=== PATIENT | male | born 1950 | race Caucasian/White ===

== ENCOUNTER 2021-04-22 17:18 | Emergency (ER) | payer MEDICARE, SELFPAY ==
[2021-04-22 17:26] VITALS: BP 187/78; PULSE 77; RESP 14; TEMP 37.2; O2SAT 100
--- NOTE | 2021-04-22 17:33 | ED.ALLEREA ---
HPI - Allergic Reaction General Chief complaint: Allergic Reaction Stated complaint: Allergic Reaction Time Seen by Provider: 04/22/21 17:38 Source: patient and RN notes reviewed Mode of arrival: ambulatory Limitations: no limitations History of Present Illness HPI narrative: 70-year-old male presents with concern for generalized itching and possible allergic reaction. He reports symptoms started yesterday. He denies any recent med changes, new laundry detergents, soaps, per care products. Denies any history of allergies to food or medicine. Reports approximately 2 weeks ago he started a new medication, carbidopa levodopa. He denies any interaction at that time. He denies swollen lips, swollen tongue, shortness of breath, nausea, vomiting, diarrhea, fever. Denies any intervention. MD complaint: other (Generalized itching) Related Data Home Medications Medication Instructions Recorded Confirmed albuterol 90 mcg INHALATION Q4H PRN 04/22/21 04/22/21 atorvastatin 20 mg PO DAILY 04/22/21 04/22/21 carbidopa-levodopa 1 tablet PO BID 04/22/21 04/22/21 donepezil 10 mg PO HS 04/22/21 04/22/21 famotidine 20 mg PO DAILY 04/22/21 04/22/21 lamotrigine 200 mg PO DAILY 04/22/21 04/22/21 melatonin 5 mg PO HS 04/22/21 04/22/21 tamsulosin 0.4 mg PO DAILY 04/22/21 04/22/21 Allergies Allergy/AdvReac Type Severity Reaction Status Date / Time codeine Allergy Confusion Verified 04/22/21 17:37 Review of Systems Review of Systems: CONSTITUTIONAL: Denies malaise, chills, sweats, or fever. EYES: Denies visual changes, redness, or discharge. ENT: Denies rhinorrhea, congestion, sinus pain, otalgia or sore throat. CARDIOVASCULAR: Denies chest pain, palpitations, or edema. RESPIRATORY: Denies cough or dyspnea. GASTROINTESTINAL: Denies abdominal pain, nausea, vomiting, diarrhea SKIN: Denies rash. Reports generalized itching MUSCULOSKELETAL: Denies myalgia. NEUROLOGIC: Denies headache. All systems reviewed & are unremarkable except as noted in HPI and below PMFSH Comments At time of signature, agree with nursing past medical, surgical, social and family history. There is no relevant family history pertinent to the presenting complaint Exam Narrative: GENERAL: Well-appearing, well-nourished, and in no acute distress. HEAD: Normocephalic, atraumatic. EYES: PERRLA, conjunctivae clear, and EOMI. ENT: Mucous membranes moist. Oropharynx without edema, erythema or lesions. NECK: Supple. No lymphadenopathy CHEST: Clear to auscultation. No respiratory distress. HEART: Regular rate and rhythm. SKIN: Warm, dry. No rash noted NEURO: Alert and oriented x3. PSYCH: Normal mood and affect Course Course Emergency Course: Patient given IM Benadryl advised to follow-up with primary care provider regarding symptoms and further evaluation Patient is aware of diagnosis, understands and agrees to treatment plan. Anticipatory guidance given. Patient agrees to follow-up as directed and is aware of reasons to seek care at the emergency department. Portions of this record may have been created with voice recognition software Level of Care: Express Care Visit Vital Signs Vital signs: Vital Signs Temperature 99.0 F 04/22/21 17:26 Pulse Rate 77 04/22/21 17:26 Respiratory Rate 14 04/22/21 17:26 Blood Pressure 187/78 H 04/22/21 17:26 Pulse Oximetry 100 04/22/21 17:26 Temperature 99.0 F 04/22/21 17:26 Pulse Rate 77 04/22/21 17:26 Respiratory Rate 14 04/22/21 17:26 Blood Pressure 187/78 H 04/22/21 17:26 Pulse Oximetry 100 04/22/21 17:26 Reviewed. MDM - Allergic Reaction MDM Narrative Medical decision making narrative: No soft palate or uvula edema, no tongue or lip edema or other mucosal involvement, no respiratory compromise, no stridor, no wheezing, no wheezing, no history of syncope, no hypotension, no nausea, vomiting, or diarrhea. Critical Care Time Critical Care Time Critical Care Time: No Discharge Plan Dis
[2021-04-22 17:40] VITALS: BP 187/78; PULSE 77; RESP 14; TEMP 37.2; O2SAT 100
[2021-04-22] MEDS: diphenhydrAMINE HCl INJ 50 MG/ML VIAL 25 MG IM (17:51)
== END 2021-04-22 18:11 | disposition home or self-care (01) ==
PROVIDERS: Emergency Provider Nurse Practitioner; PCP Internal Medicine Geriatric Medicine
DX: L29.9 Pruritus, unspecified (principal); G20 Parkinson's disease; E78.00 Pure hypercholesterolemia, unspecified; K21.9 Gastro-esophageal reflux disease without esophagitis; N40.0 Benign prostatic hyperplasia without lower urinary tract symptoms; Z96.643 Presence of artificial hip joint, bilateral; E11.9 Type 2 diabetes mellitus without complications
CPT/HCPCS: 96372; 99213; G0463; J1200

== ENCOUNTER 2021-10-02 10:07 | Day surgery (SDC) | payer MEDICARE, SELFPAY ==
[2021-09-16 14:42] VITALS: BMI 31.1
--- NOTE | 2021-10-02 07:19 | WPDANESEPPF ---
Anes - Initial Pre Proc Eval Procedure: Operation Date: 10/02/21 11:30 Proposed Procedures p Cataract Extraction with Lens Implant-Left Eye - Eliezer Gonzales MD Date/Time: 10/02/21 07:19 Surgeon: Eliezer Gonzales MD Pre Op Diagnosis: H25.12 Patient Data Age: 71 Gender: M Height: 1.83 m Weight: 104 kg Allergies Allergy/AdvReac Type Severity Reaction Status Date / Time codeine Allergy Confusion Verified 10/02/21 11:08 Home Medications Medication Instructions Recorded Confirmed Type albuterol 90 mcg/actuation aerosol 90 mcg inhalation Q4H PRN Dyspnea 04/22/21 10/02/21 History inhaler atorvastatin 20 mg tablet 20 mg PO DAILY 04/22/21 10/02/21 History donepezil 10 mg tablet 10 mg PO HS 04/22/21 10/02/21 History famotidine 20 mg tablet 20 mg PO DAILY 04/22/21 10/02/21 History lamotrigine 200 mg tablet 300 mg PO DAILY 04/22/21 10/02/21 History melatonin 5 mg tablet 5 mg PO HS 04/22/21 10/02/21 History tamsulosin 0.4 mg capsule 0.4 mg PO DAILY 04/22/21 10/02/21 History dulaglutide 0.75 mg/0.5 mL 0.75 mg subcut WEEKLY 09/16/21 10/02/21 History subcutaneous pen injector (Trulicity) hydroxyzine pamoate 25 mg capsule 25 mg PO BID 09/16/21 10/02/21 History insulin degludec 200 unit/mL (3 40 unit subcut DAILY 09/16/21 10/02/21 History mL) subcutaneous pen (Tresiba FlexTouch U-200 insulin) primidone 50 mg tablet 50 mg PO HS 09/16/21 10/02/21 History Patient hx anesthesia problems: none Family hx anesthesia problems: none Results Review: All pre-operative results and documents have been reviewed as part of the pre-operative evaluation. [facility] Past Medical History Medical History (Updated 10/02/21 @ 11:33 by Chad Ramos DO) Anxiety Depression GERD (gastroesophageal reflux disease) History of pulmonary embolism Hyperlipidemia Hypertension Tremor Social History Social History Smoking status: Never smoker Alcohol intake: former Substance use: never Substance use type: does not use Living arrangements: with family Spiritual care concerns: No Anes - Eval Final PreProcedure Day of Procedure 10/02/21 07:19 Patient weight: obese Heart: regular rate and rhythm Lungs: clear to auscultation and normal air movement Airway: Mallampati scale class II Neurological: alert and oriented Last oral intake: >/= 8 hours ASA classification: III Emergent: no Anesthetic plan: proceed Anesthesia type and monitoring: monitored anesthesia care and standard monitoring Results Review: All pre-operative results and documents have been reviewed as part of the pre-operative evaluation. Informed Consent: The patient's anesthetic plan and its attendant risks and benefits were discussed with the patient/family/POA. Questions were solicited and answers provided to the satisfaction of the patient/family/POA.
--- NOTE | 2021-10-02 09:46 | WPDHPUPDATE1 ---
History and Physical Update Update Date/Time: 10/02/21 09:46 History and Physical has been reviewed, including an updated exam of the patient. There are NO changes in the patient's condition. Risks, benefits, and alternatives have been discussed and questions answered. Patient agrees to proceed with procedure.
[2021-10-02 10:55] VITALS: BP 186/86; PULSE 64; RESP 20; TEMP 36.9; O2SAT 100
[2021-10-02 11:21] LABS: Glucose Point of Care 106 mg/dl (65-105)
[2021-10-02] MEDS: OFLOXACIN 0.3% OPHTH SOLN 5 ML BTL 1 DROP AFFCTD EYE (11:25)
[2021-10-02] MEDS: TETRACAINE HCL 0.5% OPHTH SOLN 4 ML BTL 1 DROP AFFCTD EYE ×3 (11:25→11:35)
[2021-10-02] MEDS: LIDOCAINE HCL 2% JELLY 5 ML TUBE 1 APPLIC AFFCTD EYE (12:00)
[2021-10-02] MEDS: LIDOCAINE HCL 1% PF INJ 5 ML VIAL 1 ML INTRAOCULA (12:20)
[2021-10-02] MEDS: HOME MEDICATION 1 EACH AFFCTD EYE (12:37)
[2021-10-02 12:45] VITALS: BP 199/86; PULSE 78; RESP 16; TEMP 37.5; O2SAT 99
[2021-10-02] MEDS: acetaZOLAMIDE TAB 250 MG TABLET PO (12:59)
--- NOTE | 2021-10-02 13:13 | WPDANESPN ---
Anes - Prog Note Post-Op Date/Time: 10/02/21 13:13 Cardiovascular status: normal Respiratory status: normal Airway patency: baseline Mental status: baseline Post-Op hydration status: normal Vital Signs: Last Vital Signs Temp 36.9 C 10/02/21 10:55 Pulse 64 10/02/21 10:55 Resp 20 10/02/21 10:55 BP 186/86 H 10/02/21 10:55 Pulse Ox 100 10/02/21 10:55 O2 Del Method Room Air 10/02/21 10:55 Pain Score (VAS): 0 10/02/21 11:18 POC Capillary Glucose 106 H Post-procedural complaints: none Patient Feedback: Patient satisfied with anesthetic care. Other Findings: Patient vital signs back to baseline. Patient denies nausea and vomiting. Patient's pain under control. Patient OK for discharge.
--- NOTE | 2021-10-02 13:22 | W.PM.PROC2 ---
Procedure Note - Detailed Date of Procedure 10/02/21 Pre-op Diagnosis Cataract LEFT, Miotic pupillary cyst LEFT eye Post-op Diagnosis Same Procedure Performed Complex Cataract Extraction (by Phacoemulsification) and lntraocular Lens Implant LEFT eye Surgeon Eliezer Gonzales MD Description of Procedure The eye was anesthetized with topical 0.75% bupivacaine. After intravenous sedation and placement of monitors, the patient was prepped and draped in the usual sterile manner. A lid speculum was placed. A paracentesis was made, and preservative free 1% lidocaine was instilled in the anterior chamber. The anterior chamber was then filled with Viscoat viscoelastic. A jesus keratome was used to create the wound. Continuous tear anterior capsulotomy was performed. The lens was hydro dissected before being removed with phacoemulsification. The remaining lenticular cortex was removed with aspiration. The capsular bag was polished and filled with viscoelastic material. An intraocular lens was chosen, inspected, irrigated and placed within the capsular bag where it was seen to be centered and stable. The viscoelastic material was aspirated. The wound was closed and found to be watertight. Ciloxan drops were placed in the eye. The speculum was removed. A Echevarria shield was applied. The patient tolerated the procedure well and left the operating room in satisfactory condition. Implants See chart Complications None Condition Stable Disposition Same day
--- NOTE | 2021-11-06 10:09 | WPDHPUPDATE1 ---
History and Physical Update Update Date/Time: 11/06/21 10:09 History and Physical has been reviewed, including an updated exam of the patient. There are NO changes in the patient's condition. Risks, benefits, and alternatives have been discussed and questions answered. Patient agrees to proceed with procedure. Late entry - physical exam not documented on date of procedure
== END 2021-10-02 13:13 | disposition home or self-care (01) ==
PROVIDERS: PCP Internal Medicine Geriatric Medicine; Visit Provider Student in an Organized Health Care Education/Training Program
PROC: (CPT 66983; principal; 2021-10-02 11:30)
DX: H25.12 Age-related nuclear cataract, left eye (principal)
CPT/HCPCS: 66984

== ENCOUNTER 2021-10-30 10:26 | Day surgery (SDC) | payer MEDICARE, SELFPAY ==
[2021-10-21 11:31] VITALS: BMI 29.9
--- NOTE | 2021-10-29 20:57 | WPDANESEPPF ---
Anes - Initial Pre Proc Eval Procedure: Operation Date: 10/30/21 11:30 Proposed Procedures p Cataract Extraction with Lens Implant-Right Eye - Eliezer Gonzales MD <Chad Ramos, DO - Last Filed: 11/11/21 15:39> Date/Time: 10/29/21 20:57 <Chad Ramos, DO - Last Filed: 11/11/21 15:39> Surgeon: Eliezer Gonzales MD <Chad Ramos, DO - Last Filed: 11/11/21 15:39> Pre Op Diagnosis: H25.11 <Chad Ramos, DO - Last Filed: 11/11/21 15:39> Patient Data Age: 71 Gender: M Height: 1.83 m Weight: 100 kg <Chad Ramos DO - Last Filed: 11/11/21 15:39> Allergies Allergy/AdvReac Type Severity Reaction Status Date / Time codeine Allergy Confusion Verified 10/30/21 10:45 <Chad Ramos, DO - Last Filed: 11/11/21 15:39> Home Medications Medication Instructions Recorded Confirmed Type albuterol 90 mcg/actuation aerosol 90 mcg inhalation Q4H PRN Dyspnea 04/22/21 10/30/21 History inhaler atorvastatin 20 mg tablet 20 mg PO DAILY 04/22/21 10/30/21 History donepezil 10 mg tablet 10 mg PO HS 04/22/21 10/30/21 History famotidine 20 mg tablet 20 mg PO DAILY 04/22/21 10/30/21 History lamotrigine 200 mg tablet 300 mg PO DAILY 04/22/21 10/30/21 History melatonin 5 mg tablet 5 mg PO HS 04/22/21 10/30/21 History tamsulosin 0.4 mg capsule 0.4 mg PO DAILY 04/22/21 10/30/21 History dulaglutide 0.75 mg/0.5 mL 0.75 mg subcut WEEKLY 09/16/21 10/30/21 History subcutaneous pen injector (Trulicity) hydroxyzine pamoate 25 mg capsule 25 mg PO BID 09/16/21 10/30/21 History insulin degludec 200 unit/mL (3 40 unit subcut DAILY 09/16/21 10/30/21 History mL) subcutaneous pen (Tresiba FlexTouch U-200 insulin) primidone 50 mg tablet 50 mg PO HS 09/16/21 10/30/21 History hydrochlorothiazide 12.5 mg tablet 12.5 mg PO DAILY 10/21/21 10/30/21 History losartan 50 mg tablet 50 mg PO DAILY 10/21/21 10/30/21 History <Chad Ramos DO - Last Filed: 11/11/21 15:39> Patient hx anesthesia problems: none <Claudio Thomson MD - Last Filed: 10/30/21 11:09> Family hx anesthesia problems: none <Claudio Thomson MD - Last Filed: 10/30/21 11:09> Results Review: All pre-operative results and documents have been reviewed as part of the pre-operative evaluation. <Chad Ramos DO - Last Filed: 11/11/21 15:39> [facility] Past Medical History Medical History: Medical History Anxiety Depression Diabetes type 2, controlled GERD (gastroesophageal reflux disease) History of pulmonary embolism Hyperlipidemia Hypertension Parkinsons disease Tremor <Chad Ramos DO - Last Filed: 11/11/21 15:39> Social History Social History: Social History Smoking status: Never smoker Second hand tobacco smoke exposure: No Alcohol intake: never Substance use: never Substance use type: does not use Living arrangements: with family Spiritual care concerns: No <Chad Ramos DO - Last Filed: 11/11/21 15:39> Anes - Eval Final PreProcedure Day of Procedure 10/29/21 20:57 <Chad Ramos DO - Last Filed: 11/11/21 15:39> Patient weight: obese <Chad Ramos DO - Last Filed: 11/11/21 15:39> Heart: regular rate and rhythm <Chad Ramos DO - Last Filed: 11/11/21 15:39> Lungs: clear to auscultation and normal air movement <Chad Ramos DO - Last Filed: 11/11/21 15:39> Airway: Mallampati scale class II <Chad Ramos DO - Last Filed: 11/11/21 15:39> Neurological: alert and oriented <Chad Ramos DO - Last Filed: 11/11/21 15:39> Last oral intake: >/= 8 hours <Chad Ramos DO - Last Filed: 11/11/21 15:39> ASA classification: III <Chad Ramos DO - Last Filed:
--- NOTE | 2021-10-30 09:44 | WPDHPUPDATE1 ---
History and Physical Update Update Date/Time: 10/30/21 09:44 History and Physical has been reviewed, including an updated exam of the patient. There are NO changes in the patient's condition. Risks, benefits, and alternatives have been discussed and questions answered. Patient agrees to proceed with procedure.
[2021-10-30 10:45] VITALS: BP 153/80; PULSE 94; RESP 18; TEMP 37.1; O2SAT 98
[2021-10-30 10:52] VITALS: BMI 30.2
[2021-10-30] MEDS: OFLOXACIN 0.3% OPHTH SOLN 5 ML BTL 1 DROP AFFCTD EYE ×2 (10:55→12:23)
[2021-10-30] MEDS: TETRACAINE HCL 0.5% OPHTH SOLN 4 ML BTL 1 DROP AFFCTD EYE ×3 (10:55→11:05)
[2021-10-30 11:05] LABS: Glucose Point of Care 140 mg/dl (65-105)
[2021-10-30] MEDS: LIDOCAINE HCL 2% JELLY 5 ML TUBE 1 APPLIC AFFCTD EYE (11:56)
[2021-10-30] MEDS: LIDOCAINE HCL 1% PF INJ 5 ML VIAL 1 ML INTRAOCULA (12:06)
[2021-10-30] MEDS: NEOMYCIN/POLYMYXIN/DEXAMETH OP OINT 3.5 GM TUBE 1 APPLIC AFFCTD EYE (12:22)
[2021-10-30] MEDS: BRIMONIDINE TARTRATE 0.2% OP SOLN 5 ML BTL 1 DROP AFFCTD EYE (12:23)
[2021-10-30] MEDS: prednisoLONE ACETATE 1% OPHTH 5 ML 1 DROP AFFCTD EYE (12:23)
[2021-10-30 12:27] VITALS: BP 178/82; PULSE 95; RESP 16; O2SAT 95
--- NOTE | 2021-10-30 12:32 | WPDANESPN ---
Anes - Prog Note Post-Op Date/Time: 10/30/21 12:32 Cardiovascular status: normal Respiratory status: normal Airway patency: baseline Mental status: baseline Post-Op hydration status: normal Vital Signs: Last Vital Signs Temp 37.1 C 10/30/21 10:45 Pulse 94 10/30/21 10:45 Resp 18 10/30/21 10:45 BP 153/80 H 10/30/21 10:45 Pulse Ox 98 10/30/21 10:45 O2 Del Method Room Air 10/30/21 10:45 Pain Score (VAS): 0 10/30/21 11:03 POC Capillary Glucose 140 H Patient Feedback: Patient satisfied with anesthetic care.
[2021-10-30] MEDS: acetaZOLAMIDE TAB 250 MG TABLET PO (12:33)
--- NOTE | 2021-10-30 12:52 | P.OP_ITS ---
Procedure Note - Detailed Date of Procedure 10/30/21 Pre-op Diagnosis 1) Cataract, RIGHT eye, 2) Miotic pupillary cyst RIGHT eye Post-op Diagnosis Same Procedure Performed Complex Cataract Extraction (by Phacoemulsification) and lntraocular Lens Implant Surgeon Eliezer Gonzales MD Description of Procedure The eye was anesthetized with topical 0.75% bupivacaine. After intravenous sedation and placement of monitors, the patient was prepped and draped in the usual sterile manner. A lid speculum was placed. A paracentesis was made, and pr eservative free 1% lidocaine was instilled in the anterior chamber. The anterior chamber was then filled with Viscoat viscoelastic, and a Malyugin ring was placed. A jesus keratome was used to create the wound. Continuous tear anterior capsulotomy was performed. The lens was hydro dissected before being removed with phacoemulsification. The remaining lenticular cortex was removed with aspiration. The capsular bag was polished and filled with viscoelastic material. An intraocular lens was chosen, inspected, irrigated and placed within the capsular bag where it was seen to be centered and stable. The ring was removed, and viscoelastic material was aspirated. The wound was closed and found to be watertight. Ciloxan drops were placed in the eye. The speculum was removed. A Echevarria shield was applied. The patient tolerated the procedure well and left the operating room in satisfactory condition. Implants See chart Complications None Condition Stable Disposition Same day
== END 2021-10-30 13:00 | disposition home or self-care (01) ==
PROVIDERS: PCP Internal Medicine Geriatric Medicine; Visit Provider Student in an Organized Health Care Education/Training Program
PROC: (CPT 66983; principal; 2021-10-30 11:30)
DX: H25.11 Age-related nuclear cataract, right eye (principal)
CPT/HCPCS: 66982